=== PATIENT | female | born 1995 | race Caucasian/White ===

== ENCOUNTER 2020-08-22 16:46 | Emergency (ER) | payer SELFPAY ==
--- NOTE | 2020-08-22 17:41 | EDM.PDOC ---
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 Denies: Old Records History Limitations: Reports: Other (no old records) - History of Present Illness INITIAL COMMENTS - FREE TEXT/NARRATIVE: 25 yo female at 6 wks preg presents with recent onset of mild cramping and some vaginal bleeding. Does not know her blood type. Is from [place]. Is Covid positive recently. Is staying in area for a couple weeks likely. No urinary sx's. Onset: Today Onset Date: 08/22/20 Duration: Hour(s): Location: Reports: Pelvis Quality: Reports: Other (cramps) Severity: Mild Improves with: Reports: None Worsens with: Reports: None Context: Reports: Other (See HPI) Associated Symptoms: Reports: Other (none) Treatments FEED RESEARCH AIDE: Reports: Other (see below) (none) - Related Data Allergies Allergy/AdvReac Type Severity Reaction Status Date / Time No Known Allergies Allergy Verified 08/22/20 16:56 Home Meds: Home Meds NK [No Known Home Meds] 08/22/20 [History] Social & Family History - Tobacco Use Smoking Status *Q: Never Smoker ED ROS GENERAL - Review of Systems Review Of Systems: See Below Constitutional: Reports: No Symptoms GI/Abdominal: Reports: No Symptoms : Reports: Other (mild vaginal bleeding) Skin: Reports: No Symptoms ED EXAM - Physical Exam Exam: See Below Exam Limited By: No Limitations General Appearance: Alert, WD/WN, No Apparent Distress Extremities: Normal Inspection Neurological: Alert, Oriented, CN II-XII Intact, Normal Cognition, No Motor/Sensory Deficits Psychiatric: Normal Affect, Normal Mood Skin Exam: Warm, Dry, Intact, Normal Color, No Rash Course - Vital Signs Last Recorded V/S: Last Vital Signs Temp 37.2 C 08/22/20 16:57 Pulse 97 08/22/20 16:57 Resp 18 08/22/20 16:57 BP 112/76 08/22/20 16:57 Pulse Ox 20 L 08/22/20 16:57 - Orders/Labs/Meds Orders: Active Orders 24 hr Category Date Time Status PATIENT RETYPE [ELICIA] Stat Lab 10/06/20 17:34 Results TYPE AND SCREEN [BBK] Stat Lab 08/22/20 17:34 Results Labs: Laboratory Tests 08/22/20 08/22/20 Range/Units 17:34 17:34 HCG, Quant 7 H (0-6) mIU/mL Blood Type A POSITIVE Gel Antibody Screen Negative Departure - Departure Time of Disposition: 18:57 Disposition: Home, Self-Care 01 Condition: Good Clinical Impression: Incomplete miscarriage - Discharge Information *PRESCRIPTION DRUG MONITORING PROGRAM REVIEWED*: Not Applicable *COPY OF PRESCRIPTION DRUG MONITORING REPORT IN PATIENT JOSÉ: Not Applicable Referrals: PCP,None [Primary Care Provider] - Forms: ED Department Discharge Additional Instructions: Acetaminophen and/or ibuprofen as needed for pain relief. Discuss your test result with your doctor tomorrow morning. Your quantitative beta HCG was 7 today. Your blood type was A+ Sepsis Event Note (ED) - Evaluation Sepsis Screening Result: No Definite Risk - Focused Exam Vital Signs: Vital Signs Temp Pulse Resp BP Pulse Ox 08/22/20 16:57 37.2 C 97 18 112/76 20 L - My Orders Last 24 Hours: My Active Orders 08/22/20 17:34 PATIENT RETYPE [BBK] Stat TYPE AND SCREEN [BBK] Stat - Assessment/Plan Last 24 Hours: My Active Orders 08/22/20 17:34 PATIENT RETYPE [BBK] Stat TYPE AND SCREEN [BBK] Stat
== END 2020-08-22 19:09 | disposition home or self-care (01) ==
LOC: JP.ED 16:46
DX: O03.4 Incomplete spontaneous abortion without complication (principal)
CPT/HCPCS: 36415; 84702; 86850; 86900; 86901; 99283; 99284